=== PATIENT | female | born 1995 | race Hispanic/Latino ===

== ENCOUNTER 2017-12-03 08:43 | Outpatient (CLI) | payer BC | END 2017-12-03 08:44 | disposition home or self-care (01) | LOC: BICULT 08:43 | PROVIDERS: ATTEND Family Medicine | DX: R74.8 Abnormal levels of other serum enzymes (principal); K76.0 Fatty (change of) liver, not elsewhere classified | CPT/HCPCS: 76770 ==

== ENCOUNTER 2020-03-16 23:55 | Emergency (ER) | payer BC ==
[2020-03-17] MEDS ORDERED: Ketorolac Tromethamine 30 MG/ML VIAL ONE (00:06)
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
== END 2020-03-17 01:15 | disposition home or self-care (01) ==
LOC: ERS 23:55
DX: S33.5XXA Sprain of ligaments of lumbar spine, initial encounter (principal); E11.9 Type 2 diabetes mellitus without complications; Z79.84 Long term (current) use of oral hypoglycemic drugs; V89.2XXA Person injured in unspecified motor-vehicle accident, traffic, initial encounter
CPT/HCPCS: 71046; 72100; 96372; J1885

== ENCOUNTER 2021-09-17 12:58 | Emergency (ER) | payer BC, SELFPAY ==
[2021-09-17 15:18] LABS: Bilirubin Negative (Negative); Blood, Urine Negative (Negative); Clarity Clear (Clear); Glucose, Urine (Dipstick) Greater than 1000 mg/dL (Negative); Ketone, Urine Negative (Negative); Leukocyte 75 Leu/uL (Negative); Nitrite Negative (Negative); Protein, Urine (Dipstick) Negative (Neg-Trace); RBC/HPF 0-3 HPF (0-3); Specific Gravity, Urine 1.015 (1.002-1.036); Squamous Epithelial 0-3 HPF (0-3); Urobilinogen Normal mg/dL (Less than 2)
[2021-09-17 15:19] LABS: Bacteria/HPF Rare-Few HPF (None Seen)
[2021-09-17 15:53] LABS: #Eosinphils 0.1 thou/uL (0.0-0.7); #Lymphocytes 2.3 thou/uL (1.20-3.40); #Neutrophils 9.5 thou/uL (1.40-6.50); %Basophils 0.2 % (0.0-1.0); %Eosinophils 0.8 % (0.0-10.0); %Lymphocytes 17.7 % (21.0-51.0); %Monocytes 7.9 % (0.0-10.0); %Neutrophils 73.4 % (42.0-75.0); Hemoglobin 13.8 g/dL (12.0-16.0); Mean Corpuscular Hemoglobin 31.2 pg (27.0-31.0); Mean Corpuscular Volume 86.7 fL (78.0-98.0); Mean Platelet Volume 8.2 fL (7.4-10.4); Platelet Count 235 thou/uL (130-400); RBC Distribution Width 11.5 % (11.5-14.5); Red Blood Cell (RBC) Count 4.42 mill/uL (4.20-5.40); White Blood Cell (WBC) Count 12.9 thou/uL (4.8-10.8)
[2021-09-19 09:58] LABS: Chlamydia by PCR Not Detected (NotDetected); GC by PCR Not Detected (NotDetected)
== END 2021-09-17 16:43 | disposition short-term general hospital (02) ==
LOC: ERS 12:58
DX: O20.0 Threatened abortion (principal); O23.592 Infection of other part of genital tract in pregnancy, second trimester; N89.8 Other specified noninflammatory disorders of vagina; Z3A.20 20 weeks gestation of pregnancy; O24.112 Pre-existing type 2 diabetes mellitus, in pregnancy, second trimester; Z79.4 Long term (current) use of insulin
CPT/HCPCS: 36416; 76815; 81003; 81015; 85025; 87480; 87491; 87510; 87591; 87660

== ENCOUNTER 2023-09-29 22:21 | Emergency (ER) | payer OTHER, SELFPAY ==
[2023-09-29 23:06] LABS: #Monocytes 0.7 thou/uL (0.11-0.59); #Neutrophils 9.9 thou/uL (1.40-6.50); %Basophils 0.3 % (0.0-1.0); %Eosinophils 0.3 % (0.0-10.0); %Lymphocytes 8.8 % (21.0-51.0); %Monocytes 6.1 % (0.0-10.0); %Neutrophils 83.9 % (42.0-75.0); Hematocrit 48.4 % (36.0-47.0); Hemoglobin 16.6 g/dL (12.0-16.0); Mean Corpuscular HGB CONC 34.3 g/dL (32.0-36.0); Mean Corpuscular Hemoglobin 28.2 pg (27.0-31.0); Mean Corpuscular Volume 82.2 fl (78.0-98.0); Mean Platelet Volume 10.8 fL (7.4-10.4); Platelet Count 239 10x3/uL (130-400); RBC Distribution Width 11.9 % (11.5-14.5); Red Blood Cell (RBC) Count 5.89 mill/uL (4.20-5.40); White Blood Cell (WBC) Count 11.8 10x3/uL (4.8-10.8)
[2023-09-29 23:19] LABS: BHCG - Serum Negative (NEGATIVE); Pregs Control Background? CLEAR/WHITE (CLR/WHITE); Pregs Control Bar Appear? YES (CONTROL BAR)
[2023-09-29 23:30] LABS: ALT (SGPT) 46 U/L (8-55); AST (SGOT) 23 U/L (5-34); Albumin 4.2 g/dL (3.5-5.0); Alkaline Phosphatase 81 U/L (40-110); Anion Gap 15 mmol/L (10-20); BUN (Urea Nitrogen) 10 mg/dL (7.0-18.7); Bilirubin, Total 0.7 mg/dL (0.2-1.2); Calc. Creatinine Clearance 0 mL/min (70-130); Calcium 8.6 mg/dL (7.8-10.44); Carbon Dioxide 20 mmol/L (22-29); Chloride 100 mmol/L (98-107); Estimated GFR 106; Globulin 3.3 g/dL (2.4-3.5); Glucose 347 mg/dL (70-105); Lipase 12 U/L (8-78); Potassium 3.6 mmol/L (3.5-5.1); Protein, Total 7.5 g/dL (6.0-8.3); Sodium 131 mmol/L (136-145)
[2023-09-30] MEDS ORDERED: Acetaminophen 325 MG TAB ONE (00:46)
[2023-09-30] MEDS ORDERED: Ondansetron PF 4 MG/2 ML Vial ONE (00:46)
[2023-09-30] MEDS ORDERED: Sodium Chloride 0.9% 100 ML ONE (01:42)
[2023-09-30] MEDS ORDERED: cefTRIAXone (ROCEPHIN) 2 GM VIAL ONE (01:42)
[2023-09-30 02:18] LABS: Bacteria/HPF None Seen HPF (None Seen); Bilirubin Negative (Negative); Blood, Urine Negative (Negative); CAUTI Indications for Culture Pelvic or flank pain; Clarity Clear (Clear); Glucose, Urine (Dipstick) Greater than 1000 mg/dL (Negative); Ketone, Urine Greater than 150 mg/dL (Negative); Leukocyte Negative Leu/uL (Negative); Nitrite Negative (Negative); Protein, Urine (Dipstick) Negative (Neg-Trace); RBC/HPF 0-3 HPF (0-3); Squamous Epithelial 0-3 HPF (0-3); Urobilinogen Normal mg/dL (Less than 2); WBC/HPF 0-3 HPF (0-3)
[2023-09-30 02:19] LABS: Specific Gravity, Urine Greater than 1.060 (1.002-1.036)
[2023-09-30 02:20] LABS: Urine Culture Reflex No No
[2023-09-30] MEDS ORDERED: Iopamidol 370 76% 100 ML VIAL ONE (11:19)
== END 2023-09-30 03:03 | disposition home or self-care (01) ==
LOC: ERS 22:21
DX: A09 Infectious gastroenteritis and colitis, unspecified (principal); D27.9 Benign neoplasm of unspecified ovary; E11.9 Type 2 diabetes mellitus without complications; Z79.899 Other long term (current) drug therapy; Z79.4 Long term (current) use of insulin
CPT/HCPCS: 36415; 74177; 80053; 81001; 83605; 83690; 84703; 85025; 87040; 87086; 93005; 96361; 96374; 96375; J0696; J2405; J3490; Q9967